=== PATIENT | male | born 1950 | race Caucasian/White ===

== ENCOUNTER 2017-08-21 09:11 | Day surgery (SDC) | payer OTHER ==
[2017-08-21] MEDS ORDERED: LR 1,000 ML IV ONE (09:23)
[2017-08-21] MEDS ORDERED: LIDOCAINE 1% 2 ML INJ ID PRN (09:23)
[2017-08-21] MEDS ORDERED: LIDOCAINE 2% JELLY 20 ML (UROJECT) ONE (09:47)
[2017-08-21] MEDS ORDERED: IOPAMIDOL (ISOVUE-M 300) 15 ML VIAL ONE (09:47)
[2017-08-21] MEDS ORDERED: MIDAZOLAM 2 MG/2 ML VIAL IVP ONE (10:48)
--- NOTE | 2017-08-21 10:48 | PDANEPAE ---
ANE Past Medical History - Cardiovascular History Hx Hypertension: Yes Hx Arrhythmias: No Hx Chest Pain: No Hx Coronary Artery / Peripheral Vascular Disease: No Hx CHF / Valvular Disease: No Hx Palpitations: No Cardiovascular History Comment: BP under good control - Pulmonary History Hx COPD: No Hx Asthma/Reactive Airway Disease: No Hx Recent Upper Respiratory Infection: No Hx Oxygen in Use at Home: No Hx Sleep Apnea: Yes Sleep Apnea Screening Result - Last Documented: Positive - Neurologic History Hx Cerebrovascular Accident: No Hx Seizures: No Hx Dementia: No - Endocrine History Hx Diabetes: No Obesity: yes, severe - Renal History Hx Renal Disorders: Yes Renal History Comment: allopurinol for tx of kidney stone. 4 stones in R ureter , 1 stone in R kidney. "growth" on penis- present x many yrs. - Liver History Hx Hepatic Disorders: No - Neurological & Psychiatric Hx Hx Neurological and Psychiatric Disorders: No - Cancer History Hx Cancer: No - Congenital Disorder History Hx Congenital Disorders: No - GI History Hx Gastrointestinal Disorders: No - Other Health History Other Health History: none - Chronic Pain History Chronic Pain: No - Surgical History Prior Surgeries: bilat cataract extraction w/IOL. L knee-partial knee replacement. rotator cuff '. kidney stone removal ' ANE Review of Systems Review of Systems: - Exercise capacity METS (RN): 4 METS ANE Patient History - Allergies Allergies/Adverse Reactions: No Known Allergies Allergy (Unverified 08/20/17 15:33) - Home Medications Home Medications: Allopurinol 08/20/17 [Last Taken 08/21/17 05:00] Lisinopril 08/20/17 [Last Taken 08/21/17 05:00] Tamsulosin HCl 08/20/17 [Last Taken 08/21/17 05:00] - NPO status NPO Since - Liquids (Date): 08/21/17 NPO Since - Liquids (Time): 07:00 NPO Since - Solids (Date): 08/20/17 NPO Since - Solids (Time): 19:00 - Smoking Hx Smoking Status: Never smoked ANE Labs/Vital Signs - Vital Signs Blood Pressure: 141/80 Heart Rate: 68 Respiratory Rate: 16 O2 Sat (%): 96 Height: 172.72 cm Weight: 122.47 kg ANE Physical Exam - Airway Neck exam: FROM Mallampati Score: Class 2 Mouth exam: normal dental/mouth exam - Pulmonary Pulmonary: no respiratory distress - Cardiovascular Cardiovascular: regular rate and rhythym - ASA Status ASA Status: III ANE Anesthesia Plan Anesthesia Plan: general endotracheal anesthesia
[2017-08-21] MEDS ORDERED: fentaNYL 100 MCG/2 ML INJ ONE (10:51)
[2017-08-21] MEDS ORDERED: PROPOFOL 200 MG/20 ML VIAL ONE ×2 (10:51→10:52)
[2017-08-21] MEDS ORDERED: SUCCINYLCHOLINE CHLORIDE*ANESTHESIA ONLY*200 MG/10 ML SYR IVP ONE (11:00)
[2017-08-21] MEDS ORDERED: LIDOCAINE 2% 5 ML SDV ONE (11:00)
[2017-08-21] MEDS ORDERED: ROCURONIUM 50 MG/5 ML VIAL ONE ×2 (11:00→12:12)
[2017-08-21] MEDS ORDERED: ONDANSETRON 4 MG/2 ML VIAL ONE (11:01)
[2017-08-21] MEDS ORDERED: SUGAMMADEX SODIUM 200 MG/2 ML VIAL IVP ONE (11:01)
[2017-08-21] MEDS ORDERED: DEXAMETHASONE 4 MG/ML VIAL ONE (11:01)
[2017-08-21] MEDS ORDERED: ceFAZolin 2 GM/SWFI 2 GM/20 ML SYR IVP ONE (11:16)
--- NOTE | 2017-08-21 11:20 | PDGENHP ---
History & Physical Chief Complaint: rlight ureterolithiasis History of Present Illness: hx of stones and now right ureterlithiasis and forureteroscopy Pertinent Past, Social, Family History: nc Relevant Physical Exam: HEENT normal. heart RRR. abdomen soft. lungs clear Cardiorespiratory Assessment: normal
--- NOTE | 2017-08-21 11:20 | PDHPUP ---
History & Physical Update H&P update statement: This history and physical update is based on an assessment of the patient which was completed after admission or registration (within 24 hours), but prior to the surgery/procedure. H&P update: H&P reviewed & patient examined, no change in patient's condition since H&P completed
[2017-08-21] MEDS ORDERED: ceFAZolin 1 GM VIAL ONE ×2 (11:36)
[2017-08-21] MEDS ORDERED: epHEDrine SULFATE 10 MG/ML SYR ONE (11:39)
[2017-08-21] MEDS ORDERED: ACETAMINOPHEN 500 MG TAB PO PRN (12:54)
[2017-08-21] MEDS ORDERED: fentaNYL 100 MCG/2 ML INJ IVP PRN (12:54)
[2017-08-21] MEDS ORDERED: ONDANSETRON 4 MG/2 ML VIAL IVP PRN (12:54)
[2017-08-21] MEDS ORDERED: NALOXONE HCL 0.4 MG/ML INJ IVP PRN ×2 (12:54)
[2017-08-21] MEDS ORDERED: PHENYLEPHRINE HCL 100 MCG/ML SYR IVP PRN (12:54)
[2017-08-21] MEDS ORDERED: PROMETHAZINE HCL 25 MG/ML INJ IVP PRN (12:54)
[2017-08-21] MEDS ORDERED: HYDROCODONE/APAP 5/325 TAB PO PRN (12:54)
[2017-08-21] MEDS ORDERED: ALBUTEROL 3 ML DEYVIAL IH PRN (12:54)
[2017-08-21] MEDS ORDERED: LR 500 ML IV PRN (12:54)
[2017-08-21] MEDS ORDERED: OXYCODONE/APAP 5/325 TAB PO PRN (12:54)
[2017-08-21] MEDS ORDERED: HYDROmorphONE/DILAUDID 1 MG/ML INJ IVP PRN (12:54)
[2017-08-21] MEDS ORDERED: epHEDrine SULFATE 10 MG/ML SYR IVP PRN (12:54)
--- NOTE | 2017-08-21 12:54 | POSTANESTH ---
Post Anesthetic Evaluation Cardiovascular Status: Normal, Stable Respiratory Status: Normal, Stable Level of Consciousness/Mental Status: Can Participate in Eval Pain Control: Adequate, Prn Tx Ordered Nausea/Vomiting Control: Adequate, Prn Tx Ordered Complications Possibly Related to Anesthesia: None Noted
[2017-08-21 13:01] VITALS: TEMP 96.8
--- NOTE | 2017-08-21 13:05 | POSTOPPROG ---
Post Op Note Date of Operation: 08/21/17 Surgeon: Luis Ferrer Anesthesia: LMA Pre-op Diagnosis: rt ureteral stones Procedure: ureteroscoy Findings: stones Inf/Abcess present in the surg proc area at time of surgery?: No EBL: Minimal Drains: Other (stent) Specimen(s): sent, dictated
--- NOTE | 2017-08-21 13:12 | GOP ---
[f rep st] OPERATIVE REPORT DATE OF OPERATION: 08/21/2017 SURGEON: Luis Ferrer MD PREOPERATIVE DIAGNOSIS: Right ureteral calculus and nephrolithiasis. POSTOPERATIVE DIAGNOSIS: Right ureteral calculus and nephrolithiasis. PROCEDURE PERFORMED: 1. Cystoscopy and retrograde ureteral pyelogram with fluoroscopy interpreted. 2. Ureteroscopy with holmium laser lithotripsy of multiple stones: A total of 1,452 joules utilized . I used the 273 micron fiber at a mode of 10, hinojosa 8. Laser time was 3 minutes 45 seconds. FINDINGS: DESCRIPTION OF PROCEDURE: After undergoing general anesthesia and prep and drape in normal sterile f ashion, cystoscopy was performed. He had mild meatal stenosis that was dilated, and then prostatomeg jennifer noted. He had some elevation of the trigone. Then the right ureteral orifice was cannulated wit h a [place] catheter and a guidewire, and was able to pass the [place] up. It looked like he had kin d of a partial UPJ obstruction without calyceal dilation in the extrarenal pelvis, and the stones ainsley eared to be in the distal ureter. I passed the ureteral access sheath (the inner working part) up an d could not get beyond the stone; so, at that point, the semi-rigid scope was passed up, and I fragme nted the 2 large stones, extracting the pieces with a stone basket, and then there was a 3rd stone th at was actually extracted intact. After visualizing the ureter and the meatus of the ureter to make sure there was no significant disruption, ureteroscope was passed under direct vision up to the urete ropelvic junction. Then I passed a wire and then placed the ureteral access sheath up to the mid ure ter. Then the flexible scope was passed up into the kidney to confirm the presence or absence of any calyceal or infundibular stones. There were no stones in the renal pelvis, calices, or renal pelvis that I could visualize with flexible scope. At that point, I passed a 5.4 multi-length stent that c urled in the renal pelvis and curled in the bladder; confirmed the position in the bladder radiograph ically and endoscopically, and no stones remaining in the bladder. At that point, we placed Uro-Jet in the urethra, and a [place] catheter was placed. He will be discharged home. I would probably recom mend he be discharged home with the catheter in place and removed tomorrow morning at home. See me dalia n 1 week for stent removal. No complications encountered. He tolerated the procedure well. Margie n sent for chemical analysis. /[id number]/MODL
[2017-08-21 13:39] VITALS: BP 125/66; PULSE 63; RESP 14; O2SAT 92
== END 2017-08-21 14:30 | disposition home or self-care (01) ==
LOC: FSGY 09:11
PROVIDERS: ATTEND Specialist
PROC: BT161ZZ Fluoroscopy of Right Ureter using Low Osmolar Contrast (ICD-10-PCS; principal; 2017-08-21 10:45)
PROC: 0TC68ZZ Extirpation of Matter from Right Ureter, Via Natural or Artificial Opening Endoscopic (ICD-10-PCS; principal; 2017-08-21 10:45)
DX: N20.2 Calculus of kidney with calculus of ureter (principal); N13.30 Unspecified hydronephrosis; N48.9 Disorder of penis, unspecified; Z87.442 Personal history of urinary calculi
CPT/HCPCS: 52353; 76001; C1758; C1769; C1894; 82365-90; C2625; J0330; J0690; J1100; J2250; J2405; J2704; J3010; Q9967